=== PATIENT | male | born 1960 | race Caucasian/White ===

== ENCOUNTER 2019-05-11 07:39 | Day surgery (SDC) | payer OTHER ==
[~2019-05-11 07:39] MED LIST: Lactated Ringers 1,000 ML IV ONE; Sensorcaine 0.25% 10 ML ONE
[2019-05-11] MEDS: Lactated Ringers 1,000 ML IV SCH (08:16)
[2019-05-11 08:42] LABS: ALKALINE PHOSPHATASE 67 U/L (38-126); ANION GAP 11.9 MEQ/L (5-15); BLOOD UREA NITROGEN 15 mg/dL (9-20); CHLORIDE 111 mmol/L (98-107); Calcium 10.3 mg/dL (8.4-10.2); Carbon Dioxide 24 mmol/L (22-30); Creatinine 1 1.01 mg/dL (0.66-1.25); Glucose 113 mg/dL (74-106); Potassium 4.4 mmol/L (3.5-5.1); SGOT/AST 19 U/L (17-59); SGPT/ALT 22 U/L (0-50); SODIUM 142 mmol/L (137-145); Total Protein 6.9 g/dL (6.3-8.2)
[2019-05-11] MEDS ORDERED: Quelicin Fliptop 200 MG/10 ML ONE (09:07)
[2019-05-11] MEDS ORDERED: DIPRIVAN 200 MG/20 ML IV ONE (09:07)
[2019-05-11] MEDS ORDERED: Zofran 4 MG/2 ML VIAL ONE (09:07)
[2019-05-11] MEDS ORDERED: SUBLIMAZE 100 MCG/2 ML ONE ×2 (09:07→09:44)
[2019-05-11] MEDS ORDERED: Versed 2 MG/2 ML Injection ONE (09:07)
[2019-05-11] MEDS ORDERED: Decadron 4 MG INJ ONE (09:12)
[2019-05-11] MEDS ORDERED: KEFZOL 1 GM ONE ×2 (09:29)
[2019-05-11] MEDS ORDERED: Zemuron 100 MG/10 ML ONE (09:46)
[2019-05-11] MEDS ORDERED: BRIDION 200MG/2ML IV ONE (10:53)
--- NOTE | 2019-05-11 11:19 | OP ---
SURGERY DATE/TIME: 05/11/2019 0915 PREOPERATIVE DIAGNOSES: 1) Enlarging left chest wall mass. 2) Enlarging right posterior upper parascapular subcu mass. POSTOPERATIVE DIAGNOSES: 1) Enlarging left chest wall mass. 2) Enlarging right posterior upper parascapular subcu mass. PROCEDURES: 1) Excision of a deep submuscular 8 cm tumor involving the lower edge of the axilla with the axillary vein and lower portion of the brachial plexus excision and closure. 2) A 3 cm elliptical excision of an 8 mm sebaceous cyst of the back and closure. SURGEON: Jose Shaver M.D. ANESTHESIA: General. COMPLICATIONS: None. CONDITION: Stable. INDICATION: The patient has the above two enlarging lesions. DESCRIPTION OF PROCEDURE: Taken to surgery. The larger was addressed first. In supine position, routine prep and drape. Curvilinear incision skin and subcu, muscular fascia, pectoralis major muscle fibers split along direct with its fibers. The tumor was present. Envelope was developed, was taken completely off the posterior portion of the pectoralis major and then off the edge of the pectoralis minor. Then at the axilla the axilla was brought from medial to lateral. The axillary vein identified. Two branches were taken. A descending axillary nerve most likely the lateral pectoral nerve and then the medial pectoral nerve. Dissection was kept on the tumor and the tumor recovered out of this brachial plexus. There certainly were fibers coherent to the tumor. It is possible for the seventh or eighth nerves to have been contiguous with the edge. Specimen delivered. Field was dry. No drains were placed. Pectoralis major closed with 0 Vicryl. Skin closed with 4-0 Vicryl. Sterile glue applied. Patient was turned, reprepped and draped. Elliptical excision followed by closure of the lesion on the posterior scapular area. This was an 8 mm sebaceous cyst taken through a 3 cm skin incision, closed with 3-0 Prolene vertical mattress sutures. The patient tolerated the procedure satisfactorily. Findings were shown to the family.
[2019-05-11] MEDS: Zofran 4 MG/2 ML VIAL IV PRN (11:47)
[2019-05-11] MEDS: Compazine 10 MG/2 ML IV ONE (12:05)
[2019-05-11] MEDS ORDERED: MORPHINE SULFATE 2 MG INJ ONE (12:15)
[2019-05-11] MEDS: MORPHINE SULFATE 2 MG INJ IV PRN (12:15)
[2019-05-11 12:56] VITALS: BP 132/83; PULSE 65; O2SAT 95
== END 2019-05-11 13:10 | disposition home or self-care (01) ==
LOC: SDC 07:39
PROVIDERS: ATTEND Surgery
DX: D17.1 Benign lipomatous neoplasm of skin and subcutaneous tissue of trunk (principal); L72.0 Epidermal cyst
CPT/HCPCS: 36415; 80053; 88305; J0330; J0690; J1100; J2250; J2270; J2405; J2704; J3010

== ENCOUNTER 2023-05-15 05:34 | Emergency (ER) | payer BC ==
[2023-05-15 05:49] VITALS: TEMP 98.2
[2023-05-15] MEDS ORDERED: Sodium Chloride 0.9% 1000 ML 1,000 ML IV STA (06:00)
[2023-05-15 06:14] LABS: Absolute Neutrophil Ct (ANC) 6.86 x10^3/uL (1.4-6.9); BASOPHIL % 0.3 % (0.0-0.4); Basophil (Absolute #) 0.03 x10^3/uL (0-0.4); Eosinophil % 1.4 % (0.00-5.0); Eosinophil (Absolute #) 0.12 x10^3/uL (0-0.5); Hemoglobin 15.1 g/dL (12.5-18.0); IMMATURE GRAN # 0.03 x10^3u/L (0.00-0.03); IMMATURE GRAN % 0.3 % (0.00-0.4); Lymphocyte (Absolute #) 1.19 x10^3/uL (1.0-4.6); Lymphocytes % 13.4 % (24.0-44.0); Mean Cell Volume 92.4 fL (78-100); Mean Corpuscular Hemoglobin 31.7 pg (26-32); Mean Corpuscular Hgb Concent. 34.3 g/dL (32-36); Mean Platelet Volume 9.4 fL (7.5-11.0); Monocyte (Absolute #) 0.62 x10^3/uL (0.0-1.3); Neutrophil % 77.6 % (36.0-66.0); Platelet Count 229 x10^3/uL (150-450); Red Blood Count 4.76 x10^6/uL (4.1-5.6); White Blood Count 8.9 x10^3/uL (4.0-10.5)
[2023-05-15] MEDS ORDERED: Sodium Chloride 0.9% 1000 ML 1,000 ML ONE (06:23)
[2023-05-15 06:42] LABS: ALBUMIN 4.2 g/dL (3.5-5.0); ALKALINE PHOSPHATASE 92 U/L (38-126); AMYLASE 45 U/L (30-110); BLOOD UREA NITROGEN 15 mg/dL (9-20); CHLORIDE 106 mmol/L (98-107); Calcium 9.4 mg/dL (8.4-10.2); Carbon Dioxide 23 mmol/L (22-30); Creatinine 1 1.05 mg/dL (0.66-1.25); EST GLOMERULAR FILTRATION RATE > 60.0 ML/MIN; Glucose 126 mg/dL (74-106); LIPASE 76 U/L (23-300); Potassium 4.4 mmol/L (3.5-5.1); SGOT/AST 21 U/L (17-59); SGPT/ALT 21 U/L (0-50); SODIUM 137 mmol/L (137-145); Total Protein 6.9 g/dL (6.3-8.2)
--- NOTE | 2023-05-15 06:48 | ERPHSYRPT ---
- History of Present Illness Historian: patient, family Exam Limitations: no limitations Patient Subjective Stated Complaint: pt c/o intermittent epigastric pain since 2099, no vomiting or diarrhea, no fever Triage Nursing Assessment: pt ambulatory to bed by self, pt alert and oriented x3, skin pwd, c/o intermittent epigastric pain since 2099, pt denies vomiting or diarrhea, last BM was 05/14/23 Quality: cramping Abdominal Pain Onset Location: RUQ, LUQ, epigastric Pain Radiation: no radiation Severity of Pain-Max: moderate Severity of Pain-Current: mild Modifying Factors: Improves With: nothing Associated Symptoms: nausea (When the intense cramping occurs), No chest pain, No diarrhea, No shortness of breath, No testicular pain, No vomiting Previous symptoms: no prior history Hx Tetanus, Diphtheria Vaccination/Date Given: No Hx Influenza Vaccination/Date Given: Yes Hx Pneumococcal Vaccination/Date Given: Yes Immunizations Up to Date: Yes <CAROLE SHIELDS - Last Filed: 05/15/23 06:43> <DREA GUTIERREZ - Last Filed: 05/15/23 11:29> - History of Present Illness Time Seen by Provider: 05/15/23 05:55 Physician History: This is a 62-year-old white male patient who presents to the emergency department with intermittent epigastric cramping since 9 PM last evening. Jasson lopez denies vomiting and diarrhea. He has had a few occasions where he was little nauseated. 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 Patient gives himself enemas rectally every day. 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 He is on cyclosporine, and is on and azathioprine. Patient denies heart disease. Patient has no chest pain. He has no shortness of breath. He currently does not have the pain. However when it comes sharply it is very intense. He measures his pain a 2 out of 10 at this time. Patient does not want anything for pain or nausea at this time. (CAROLE SHIELDS) Allergies/Adverse Reactions: meperidine HCl [From Demerol] Allergy (Verified 05/15/23 05:42) rapid hr Home Medications: azaTHIOprine [Imuran] 25 mg PO DAILY 12/03/13 [History] cycloSPORINE [Cyclosporine] 50 mg PO BID 12/03/13 [History] predniSONE [Prednisone] 2.5 mg PO DAILY 12/03/13 [History] Travel Risk - International Travel Have you traveled outside of the country in past 3 weeks: No - Coronavirus Screening Are you exhibiting any of the following symptoms?: No Close contact with a COVID-19 positive Pt in past 14-21 Days: No - Vaccine Status Have you recieved a Covid-19 vaccination: Yes 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: [employer] - Vaccination Dates Date of 2cond Vaccination (if applicable): unk <CAROLE SHIELDS - Last Filed: 05/15/23 06:43> - Review of Systems Constitutional: No Symptoms Eyes: No Symptoms Ears, Nose, & Throat: No Symptoms Respiratory: No Symptoms Cardiac: No Symptoms Abdominal/Gastrointestinal: Abdominal Pain (Intermittent cramping upper abdomen and epigastric region), Nausea, Appetite Changes, No Vomiting, No Diarrhea Genitourinary Symptoms: No Symptoms Musculoskeletal: No Symptoms Skin: No Symptoms Neurological: No Symptoms Psychological: No Symptoms Endocrine: No Symptoms Hematologic/Lymphatic: No Symptoms Immunological/Allergic: No Symptoms All Other Systems: Reviewed and Negative <CAROLE SHIELDS - Last Filed: 05/15/23 06:43> - Past Medical History Pertinent Past Medical History: Yes Neurological History: No Pertinent History ENT History: No Pertinent History Cardiac History: No Pertinent History Respiratory History: No Pertinent History Endocrine Medical History: No Pertinent History Musculoskeletal History: No Pertinent History GI Medical History: No Pertinent History History: Other Psycho-Social History: No Pertinent History Male Reproductive Disorders: No Pertinent History Other Medical History: on immunosuppresants for hx of renal transplant 1997 - Past Surgical History Past Surgical History: Yes Neuro Surgical History: No Pertinent History Cardiac: Cardiac Catheterization Respiratory: No Pertinent History Gastrointestinal: Hernia Repair Genitourinary: Kidney Transplant Musculoskeletal: Joint Replacement Male Surgical History: No Pertinent History Other Surgical History: excision lesion rt leg,left hip replacement, ACF with metal,neck disc surgry(anterior cervical disc),Wire from a wire brush removed from throat(from cleaning of grill,wire became attatched to steak) - Social History Smoking Status: Current some day smoker How long have you smoked: 30 Exposure to second hand smoke: No Drug Use: none Patient Lives Alone: No <CAROLE SHIELDS - Last Filed: 05/15/23 06:43> - Physical Exam General Appearance: no apparent distress, alert Eye Exam: PERRL/EOMI, eyes nml inspection Ears, Nose, Throat Exam: normal ENT inspection, moist mucous membranes Neck Exam: normal inspection, non-tender, supple, full range of motion Respiratory Exam: normal breath sounds, lungs clear, airway intact, No chest tenderness, No respiratory distress Cardiovascular Exam: regular rate/rhythm, normal heart sounds, normal peripheral pulses Gastrointestinal/Abdomen Exam: soft, normal bowel sounds, tenderness (Mild tenderness epigastric area), guarding (Mild to palpation epigastric region), No distention, No mass, No rebound Rectal Exam: not done Back Exam: normal inspection, normal range of motion, No CVA tenderness, No vertebral tenderness Extremity Exam: normal inspection, normal range of motion, pelvis stable Neurologic Exam: alert, oriented x 3, cooperative, siderographist II-XII nml as tested, normal mood/affect, nml cerebellar function, nml station & gait, sensation nml Skin Exam: normal color, warm, dry Lymphatic Exam: No adenopathy SpO2 Interpretation: normal SpO2: 98 O2 Delivery: Room Air <CAROLE SHIELDS - Last Filed: 05/15/23 06:43> - Nursing Vital Signs Nursing Vital Signs: Initial Vital Signs Temperature 98.2 F 05/15/23 05:45 Pulse Rate 76 05/15/23 05:45 Respiratory Rate 18 05/15/23 05:45 Blood Pressure 124/80 05/15/23 05:45 O2 Sat by Pulse Oximetry 98 05/15/23 05:45 Pain Scale Pain Intensity 0 - Course Nursing assessment & vital signs reviewed: Yes <CAROLE SHIELDS - Last Filed: 05/15/23 06:43> - CT Exams Abdomen/Pelvis CT Interpretation: Tele-radiologist Report (Nothing acute/Bladder wall thickening) <DREA GUTIERREZ - Last Filed: 05/15/23 11:29> Ordered Tests: Active Orders 24 hr Category Date Time Status Bedrest with BRP/BSC ROUTINE Activity 05/15/23 09:34 Completed Admit as Inpatient ROUTINE Care 05/15/23 09:33 Completed Call Admit Doctor for Orders ON ADMISSION Care 05/15/23 09:33 Completed Code Status Order ROUTINE Care 05/15/23 09:33 Completed EKG-ER Only STAT Care 05/15/23 06:02 Completed IV Insertion STAT Care 05/15/23 06:00 Completed Telemetry q6h Care 05/15/23 09:33 Completed ABDOMEN AND PELVIS W/0 CONTRAS [CT] Stat Exams 05/15/23 06:01 Completed AMYLASE Stat Lab 05/15/23 06:03 Completed BLOOD CULTURE Stat Lab 05/15/23 09:29 Received CBC W DIFF Stat Lab 05/15/23 06:03 Completed CMP Stat Lab 05/15/23 06:03 Completed LIPASE Stat Lab 05/15/23 06:03 Completed TROPONIN Q4H Lab 05/15/23 06:03 Completed TROPONIN Q4H Lab 05/15/23 10:15 Completed TROPONIN Q4H Lab 05/15/23 14:15 Ordered UA W/RFX UR CULTURE Stat Lab 05/15/23 06:03 Completed Transfer Order Routine Transfer 05/15/23 Ordered Medication Summary Discontinued Medications Generic Name Dose Route Start Last Admin Trade Name Freq PRN Reason Stop Dose Admin Sodium Chloride 1,000 mls @ 999 mls/hr 05/15/23 06:00 05/15/23 07:44 Sodium Chloride 0.9% 1000 Ml IV 05/15/23 07:00 Infused .Q1H1M STA Infusion Sodium Chloride Confirm 05/15/23 06:23 Sodium Chloride 0.9% 1000 Ml Administered 05/15/23 06:24 Dose 1,000 mls @ ud .ROUTE .STK-MED ONE Ceftriaxone Sodium/Dextrose 1 g in 50 mls @ 100 mls/hr 05/15/23 09:06 05/15/23 10:48 Rocephin 1 Gm-D5w 50 Ml Bag IV 05/15/23 09:35 Infused STAT STA Infusion Ceftriaxone Sodium/Dextrose Confirm 05/15/23 09:35 Rocephin 1 Gm-D5w 50 Ml Bag Administered 05/15/23 09:36 Dose 1 g in 50 mls @ ud IV .STK-MED ONE Lab/Rad Data: Laboratory Result Diagrams 05/15/23 06:03 05/15/23 06:03 Laboratory Results 05/15/23 05/15/23 05/15/23 Range/Units 10:15 06:03 06:03 WBC (4.0-10.5) x10^3/uL RBC (4.1-5.6) x10^6/uL Hgb (12.5-18.0) g/dL Hct (42-50) % MCV (78-100) fL MCH (26-32) pg MCHC (32-36) g/dL RDW (11.5-14.0) % Plt Count (150-450) x10^3/uL MPV (7.5-11.0) fL Gran % (36.0-66.0) % Immature Gran % (Auto) (0.00-0.4) % Nucleat RBC Rel Count (0.00-0.1) % Eos # (Auto) (0-0.5) x10^3/uL Immature Gran # (Auto) (0.00-0.03) x10^3u/L Absolute Lymphs (auto) (1.0-4.6) x10^3/uL Absolute Monos (auto) (0.0-1.3) x10^3/uL Absolute Nucleated RBC (0.00-0.01) x10^3u/L Lymphocytes % (24.0-44.0) % Monocytes % (0.0-12.0) % Eosinophils % (0.00-5.0) % Basophils % (0.0-0.4) % Absolute Granulocytes (1.4-6.9) x10^3/uL Basophils # (0-0.4) x10^3/uL Sodium (137-145) mmol/L Potassium (3.5-5.1) mmol/L Chloride (98-107) mmol/L Carbon Dioxide (22-30) mmol/L Anion Gap (5-15) MEQ/L BUN (9-20) mg/dL Creatinine (0.66-1.25) mg/dL Estimated GFR ML/MIN Glucose (74-106) mg/dL Calcium (8.4-10.2) mg/dL Total Bilirubin (0.2-1.3) mg/dL AST (17-59) U/L ALT (0-50) U/L Alkaline Phosphatase (38-126) U/L Troponin I < 0.012 < 0.012 (0.000-0.034) ng/mL Serum Total Protein (6.3-8.2) g/dL Albumin (3.5-5.0) g/dL Amylase (30-110) U/L Lipase (23-300) U/L Urine Color Dark Yellow (Yellow) Urine Appearance Clear (Clear) Urine pH 5.5 (4.6-8.0) Ur Specific [place] 1.025 (1.005-1.030) Urine Protein Negative (Negative) Urine Glucose (UA) Negative (Negative) mg/dL Urine Ketones Negative (Negative) Urine Blood Negative (Negative) Urine Nitrite Negative (Negative) Urine Bilirubin Negative (Negative) Urine Urobilinogen 1.0 A (0.2) mg/dL Ur Leukocyte Esterase Small A (Negative) U Hyaline Cast (Auto) NONE SEEN (0-2) /LPF Urine Microscopic RBC 0-2 (0-5) /HPF Urine Microscopic WBC 11-20 A (0-5) /HPF Ur Epithelial Cells Rare (None Seen) /HPF Urine Bacteria None Seen (None Seen) /HPF Urine Culture Reflexed NO (NO) 05/15/23 05/15/23 Range/Units 06:03 06:03 WBC 8.9 (4.0-10.5) x10^3/uL RBC 4.76 (4.1-5.6) x10^6/uL Hgb 15.1 (12.5-18.0) g/dL Hct 44.0 (42-50) % MCV 92.4 (78-100) fL MCH 31.7 (26-32) pg MCHC 34.3 (32-36) g/dL RDW 13.0 (11.5-14.0) % Plt Count 229 (150-450) x10^3/uL MPV 9.4 (7.5-11.0) fL Gran % 77.6 H (36.0-66.0) % Immature Gran % (Auto) 0.3 (0.00-0.4) % Nucleat RBC Rel Count 0.0 (0.00-0.1) % Eos # (Auto) 0.12 (0-0.5) x10^3/uL Immature Gran # (Auto) 0.03 (0.00-0.03) x10^3u/L Absolute Lymphs (auto) 1.19 (1.0-4.6) x10^3/uL Absolute Monos (auto) 0.62 (0.0-1.3) x10^3/uL Absolute Nucleated RBC 0.00 (0.00-0.01) x10^3u/L Lymphocytes % 13.4 L (24.0-44.0) % Monocytes % 7.0 (0.0-12.0) % Eosinophils % 1.4 (0.00-5.0) % Basophils % 0.3 (0.0-0.4) % Absolute Granulocytes 6.86 (1.4-6.9) x10^3/uL Basophils # 0.03 (0-0.4) x10^3/uL Sodium 137 (137-145) mmol/L Potassium 4.4 (3.5-5.1) mmol/L Chloride 106 (98-107) mmol/L Carbon Dioxide 23 (22-30) mmol/L Anion Gap 12.0 (5-15) MEQ/L BUN 15 (9-20) mg/dL Creatinine 1.05 (0.66-1.25) mg/dL Estimated GFR > 60.0 ML/MIN Glucose 126 H (74-106) mg/dL Calcium 9.4 (8.4-10.2) mg/dL Total Bilirubin 0.80 (0.2-1.3) mg/dL AST 21 (17-59) U/L ALT 21 (0-50) U/L Alkaline Phosphatase 92 (38-126) U/L Troponin I (0.000-0.034) ng/mL Serum Total Protein 6.9 (6.3-8.2) g/dL Albumin 4.2 (3.5-5.0) g/dL Amylase 45 (30-110) U/L Lipase 76 (23-300) U/L Urine Color (Yellow) Urine Appearance (Clear) Urine pH (4.6-8.0) Ur Specific [place] (1.005-1.030) Urine Protein (Negative) Urine Glucose (UA) (Negative) mg/dL Urine Ketones (Negative) Urine Blood (Negative) Urine Nitrite (Negative) Urine Bilirubin (Negative) Urine Urobilinogen (0.2) mg/dL Ur Leukocyte Esterase (Negative) U Hyaline Cast (Auto) (0-2) /LPF Urine Microscopic RBC (0-5) /HPF Urine Microscopic WBC (0-5) /HPF Ur Epithelial Cells (None Seen) /HPF Urine Bacteria (None Seen) /HPF Urine Culture Reflexed (NO) - Progress Progress: improved Counseled pt/family regarding: lab results, diagnosis, need for follow-up, rad results <CAROLE SHIELDS - Last Filed: 05/15/23 06:43> <DREA GUTIERREZ - Last Filed: 05/15/23 11:29> - Progress Progress Note: 05/15/23 06:47 This patient's medical issue is 1 of moderate complexity. Level complexity and the work-up performed is based on review of the patient's past medical history, review the patient's drug allergy list, review the patient's medication list, history of present illness and physical findings on examination. The work-up includes twelve-lead EKG, troponin level, amylase, lipase, CBC, CMP, infusion of 1 L normal saline solution and CT scan of the abdomen pelvis without contrast. This patient's work-up has not yet been complete. I am transferring care to Dr. Gutierrez at shift change. I have updated him on the patient's history and condition and pending work-up. He will follow-up on the results and make final disposition. (CAROLE SHIELDS) 05/15/23 07:33 Assumed care at 7AM of pt w epigastric pain starting at 2100 last night. Pain is now 0/10 wo any pain meds but was up to an 8 and was described as sharp. He denies any N/V/D/melena/hematochezia/dysuria/hematuria/chest pain/dyspnea/fever/cough/coryza. PMH included renal transplant/imperforate anus w repair. He has never had this pain before. 05/15/23 09:[address] Ventura Blood cultures x2 1gm IV Rocephin 05/15/23 09:36 Pt refused all pain meds since 7AM Obs admit due to possible UTI w renal transplant 05/15/23 09:54 Pt/ decided that he did not want to be admitted at this time and elected to be discharged. Will start Macrobid for possible cystitis. 05/15/23 11:29 (DREA GUTIERREZ) Medical Desision Making - Independent Historian Additional History obtained from: Spouse <CAROLE SHIELDS - Last Filed: 05/15/23 06:43> - Discussion of managment Care discussed with:: hospitalist Agreed on:: place in obs - Diagnostic Testing Diagnostic test were ordered, analyzed, and reviewed by me: Yes Radiological Interpretation: Reviewed by me, Teleradiologist Report - Risk of complications The pt has a high risk of morbidity or mortality based on: Drug therapy requiring intensive monitoring for toxicity <MATTDREA - Last Filed: 05/15/23 11:29> - Departure Departure Disposition: Home Critical Care Time: No <SHIELDSCAROLE - Last Filed: 05/15/23 06:43> - Departure Departure Disposition: Home <LUKEEILEENDREA - Last Filed: 05/15/23 11:29> - Departure Clinical Impression: Abdominal pain, UTI (urinary tract infection) Condition: Stable Referrals: ANGELA DONATO [Primary Care Provider] - Follow up/PCP as directed Instructions: Urinary Tract Infection, Adult (DC), Severe Abdominal Pain, Adult (DC) Additional Instructions: Follow up with your family MD Return to ER for increasing pain or temperature greater than 100.5 Start Macrobid twice a day for 5 days Prescriptions: Nitrofurantoin Monohyd/M-Cryst [Macrobid 100 mg Capsule] 100 mg PO BID #10 cap
[2023-05-15 06:52] VITALS: PULSE 62; RESP 17
[2023-05-15 06:59] LABS: Appearance Clear (Clear); Bacteria None Seen /HPF (None Seen); Bilirubin Negative (Negative); Blood Negative (Negative); Epithelial Cells Rare /HPF (None Seen); Glucose, Urine Negative (Negative); Hyaline Casts NONE SEEN /LPF (0-2); Ketones Negative (Negative); Leukocyte Esterase Small (Negative); Nitrite Negative (Negative); Ph 5.5 (4.6-8.0); Protein,Urine Dip Negative (Negative); RBC 0-2 /HPF (0-5); Specific Gravity 1.025 (1.005-1.030)
[2023-05-15 07:03] LABS: ADD URINE CULTURE? NO (NO)
[2023-05-15 08:10] VITALS: O2SAT 95
--- NOTE | 2023-05-15 08:37 | XRAY ---
CLINICAL HISTORY:Upper abd cramping; nausea COMPARISON:09/19/2021 TECHNIQUE:CT of the abdomen and pelvis was performed with axial images as well as sagittal and coronal reconstruction images without intravenous contrast. ;DLP: [id number] FINDINGS: Transplant kidney noted in the left iliac fossa and appears grossly unremarkable. Bilateral 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 Few tiny foci of calcification noted in the both kidneys measures 3 mm or less, could be vascular calcififcation or tiny non-obstructing calculi. Redemonstration of Fat-containing umbilical hernia , defect measures 1.1x0.8 cm showing no interval change. Redemonstration of midline fat-containing hernia involvingg the lower anterior abdominal wall with the fefect measures 3.9x3.4 cm with few adjacent Tiny foci of calcification, showing no change Total hip replacement noted on the left side which appears grossly unremarkable with no loosening or breaks of internal fixation. Urinary bladder is partially filled showing diffuse wall thickening, could be secondary to partial filling ,however clinical correlation is advised to rule out cystitis.No urinary bladder calculus identified. The liver is normal in size, morphology and position. The liver appears unremarkable with no intrahepatic or extrahepatic bile duct dilation. Gallbladder appears normal with no obvious stones wall thickening or pericholecystic inflammatory changes or fluid. Unremarkable appearing pancreas. No pancreatic mass or ductal dilatation is seen. Unremarkable appearing spleen. The adrenal glands are normal. The stomach is partially collapsed and appears grossly unremarkable.Unremarkable appearing duodenum. Small bowel and colon are non-distended with no abnormality .No free air and no ascites. No free intraperitoneal air is seen. Appendix is visualized and appears grossly unremarkable, no evidence of periappendiceal fat stranding. Visualized bones appear unremarkable. Redemonstration of diffusely calcified unchanged nodule measures 3.3 mm in the anterior segment of right lower lobe representing benign finding. IMPRESSION: No acute abnormality identified. Transplant kidney noted in the left iliac fossa and appears grossly unremarkable. Bilateral 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 Few tiny foci of calcification noted in the both kidneys measures 3 mm or less, could be vascular calcififcation or tiny non-obstructing calculi. Redemonstration of Fat-containing umbilical hernia , defect measures 1.1x0.8 cm showing no interval change. Redemonstration of midline fat-containing hernia involvingg the lower anterior abdominal wall with the fefect measures 3.9x3.4 cm with few adjacent Tiny foci of calcification, showing no change. Total hip replacement noted on the left side which appears grossly unremarkable with no loosening or breaks of internal fixation. No gross interval change. Electronically Signed by: Robles Shanks MD. (05/15/2023 07:37:04 FILM TOUCH UP INSPECTOR)
[2023-05-15] MEDS ORDERED: ROCEPHIN 1 Gm-D5w 50 ml Bag** 1 G/50 ML IVPB IV STA (09:06)
[2023-05-15] MEDS ORDERED: ROCEPHIN 1 Gm-D5w 50 ml Bag** 1 G/50 ML IVPB IV ONE (09:35)
[2023-05-15 10:11] VITALS: BP 129/85
== END 2023-05-15 11:00 | disposition home or self-care (01) ==
LOC: ED 05:34
DX: N39.0 Urinary tract infection, site not specified (principal); R10.13 Epigastric pain; Z79.899 Other long term (current) drug therapy; Z94.0 Kidney transplant status; Z72.0 Tobacco use
CPT/HCPCS: 36000; 36415; 74176; 80053; 81001; 82150; 83690; 84484; 85025; 87040; 93005; 96365; 99284; J0696